=== PATIENT | male | born 1960 | race Caucasian/White ===

== ENCOUNTER 2024-05-15 12:14 | Emergency (ER) | payer OTHER ==
[~2024-05-15] VITALS: Ht 167.6 cm; Wt 79.5 kg
[2024-05-15 12:21] VITALS: TEMP 98
[2024-05-15 13:08] VITALS: BP 140/80; PULSE 78; RESP 18
[2024-05-15] MEDS ORDERED: ACET-3385 PO (13:58)
[2024-05-15] MEDS: ACETAMINOPHEN 500 MG TABLET PO ONE (14:09)
== END 2024-05-15 15:03 | disposition home or self-care (01) ==
LOC: EMS 12:14
DX: S83.91XA Sprain of unspecified site of right knee, initial encounter (principal); I10 Essential (primary) hypertension; W12.XXXA Fall on and from scaffolding, initial encounter; Y93.01 Activity, walking, marching and hiking; Y92.89 Other specified places as the place of occurrence of the external cause; Y99.0 Civilian activity done for income or pay
CPT/HCPCS: 99283